=== PATIENT | male | born 1970 | race Two or more races ===

== ENCOUNTER 2021-12-13 17:07 | Inpatient (IN) | payer BC, MEDICAID ==
[~2021-12-13] VITALS: Ht 177.8 cm; Wt 74.8 kg
[2021-12-13 18:20] LABS: BASOPHILS # (AUTO) 0.1 K/uL (0.0-0.2); BASOPHILS % (AUTO) 0.5 % (0.0-2.0); HEMATOCRIT 41 % (39-51); HEMOGLOBIN 14.3 g/dL (13.5-17.5); LYMPHOCYTES # (AUTO) 1.3 K/uL (0.8-4.8); LYMPHOCYTES % (AUTO) 11.6 % (20.0-44.0); MEAN CORPUSCULAR HGB CONC 35 g/dl (31.0-36.0); MEAN CORPUSCULAR VOLUME 83 fL (80-96); MONOCYTES # (AUTO) 0.8 K/uL (0.1-1.30); MONOCYTES % (AUTO) 7.5 % (2.0-12.0); NEUTROPHILS # (AUTO) 8.5 K/uL (1.8-8.9); NEUTROPHILS % (AUTO) 78.4 % (43.0-81.0); PLATELET COUNT (AUTO) 613 K/uL (150-450); RED BLOOD CELL COUNT(AUTO) 4.87 MIL/uL (4.5-6.0); WHITE BLOOD COUNT (AUTO) 10.9 K/uL (4.3-11.0)
[2021-12-13 18:37] LABS: CALCIUM, SERUM 8.9 mg/dL (8.5-10.1); CARBON DIOXIDE 27 mmol/L (21-32); CHLORIDE 81 mmol/L (98-107); CREATININE 0.8 mg/dL (0.6-1.3); GLUCOSE 110 mg/dL (74-106); POTASSIUM 4.2 mmol/L (3.5-5.1); UREA NITROGEN, BLOOD 7 mg/dL (7-18)
[2021-12-13 18:41] LABS: ALANINE AMINOTRANSFERASE 48 U/L (12-78); ALBUMIN 3.5 g/dL (3.4-5.0); ALCOHOL, BLOOD < 3 mg/dL (0-0); ALKALINE PHOSPHATASE 108 U/L (46-116); ASPARTATE AMINOTRANSFERASE 27 U/L (15-37); BILIRUBIN,DIRECT 0.2 mg/dL (0.0-0.2); BILIRUBIN,TOTAL 0.6 mg/dL (0.2-1.0); TOTAL PROTEIN, SERUM 7.6 g/dL (6.4-8.2)
[2021-12-13 18:43] LABS: ACETAMINOPHEN 0 ug/ml (10-30); SODIUM SERUM 113 mmol/L (136-145)
[2021-12-13] MEDS ORDERED: IV NS 0.9% 1,000 ML IV ONE (19:00)
[2021-12-13 19:56] LABS: BILIRUBIN,URINE NEGATIVE (NEGATIVE); COLOR,URINE YELLOW (YELLOW); LEUKOCYTE ESTERASE ,URINE NEGATIVE (NEGATIVE); NITRITE, URINE NEGATIVE (NEGATIVE); PROTEIN,URINE NEGATIVE (NEGATIVE); UGLUCOSE NEGATIVE (NEGATIVE); UROBILINOGEN,URINE 0.2 EU/dL (0.2)
[2021-12-13 20:35] LABS: BACTERIA,URINE None seen /HPF (None Seen); SQUAMOUS EPITHELIAL CELL,UR 0-2 /HPF (None Seen); WBC,URINE 0-2 /HPF (0-3)
[2021-12-13 23:06] LABS: CALCIUM, SERUM 8.7 mg/dL (8.5-10.1); CREATININE 0.7 mg/dL (0.6-1.3); POTASSIUM 4.2 mmol/L (3.5-5.1)
[2021-12-14] MEDS ORDERED: ACETAMINOPHEN 325 MG TABLET PO PRN
[2021-12-14] MEDS ORDERED: MAGNESIUM HYDROXIDE 30 ML UDC PO PRN
[2021-12-14] MEDS ORDERED: MAG HYDROX/AL HYDROX/SIMETH 30 ML UDC PO PRN
[2021-12-14] MEDS ORDERED: ONDANSETRON HCL/PF 4 MG/2 ML VIAL IVP PRN
[2021-12-14] MEDS ORDERED: Z GUARD REMEDY 4 OZ OINT TP PRN
[2021-12-14 04:36] LABS: BASOPHILS % (AUTO) 0.5 % (0.0-2.0); EOSINOPHILS % (AUTO) 3.2 % (0.0-6.0); HEMATOCRIT 40 % (39-51); HEMOGLOBIN 14.1 g/dL (13.5-17.5); LYMPHOCYTES # (AUTO) 1.5 K/uL (0.8-4.8); LYMPHOCYTES % (AUTO) 15.8 % (20.0-44.0); MEAN CORPUSCULAR HGB CONC 35 g/dl (31.0-36.0); MEAN CORPUSCULAR VOLUME 84 fL (80-96); MONOCYTES # (AUTO) 0.9 K/uL (0.1-1.30); MONOCYTES % (AUTO) 9.5 % (2.0-12.0); NEUTROPHILS # (AUTO) 6.7 K/uL (1.8-8.9); PLATELET COUNT (AUTO) 603 K/uL (150-450); RED BLOOD CELL COUNT(AUTO) 4.82 MIL/uL (4.5-6.0); WHITE BLOOD COUNT (AUTO) 9.5 K/uL (4.3-11.0)
[2021-12-14 04:48] LABS: CALCIUM, SERUM 8.9 mg/dL (8.5-10.1); CREATININE 0.9 mg/dL (0.6-1.3); POTASSIUM 4.2 mmol/L (3.5-5.1)
[2021-12-14 04:52] LABS: MAGNESIUM 2.1 mg/dL (1.8-2.4); PHOSPHORUS 3.5 mg/dL (2.5-4.9)
[2021-12-14 05:04] LABS: THYROID STIMULATING HORMONE 1.846 uIU/mL (0.358-3.74)
[2021-12-14] MEDS: IV NS 0.9% 1,000 ML IV PRN (06:52)
[2021-12-14] MEDS ORDERED: PANTOPRAZOLE 40 MG TABLET.DR PO ONE (07:27)
[2021-12-14] MEDS: PANTOPRAZOLE 40 MG TABLET.DR PO SCH (07:30)
[2021-12-14] MEDS ORDERED: OMEP20TA5 PO (08:27)
[2021-12-14] MEDS ORDERED: ALLO300T2 PO (08:27)
[2021-12-14] MEDS ORDERED: MONT10TA22 PO (08:27)
[2021-12-14] MEDS ORDERED: FLUT1BLS15 INH (08:27)
[2021-12-14 10:45] LABS: POTASSIUM 4.1 mmol/L (3.5-5.1)
[2021-12-14 12:43] LABS: CALCIUM, SERUM 9.1 mg/dL (8.5-10.1); POTASSIUM 4.3 mmol/L (3.5-5.1)
[2021-12-14 15:01] LABS: POTASSIUM 4.6 mmol/L (3.5-5.1)
[2021-12-14 17:02] VITALS: BP 129/73
[2021-12-14 20:25] LABS: CREATININE, URINE 25.2 MG/DL (30.0-125.0)
[2021-12-15] MEDS: IV NS 0.9% 1,000 ML IV PRN (03:27)
[2021-12-15] MEDS: PANTOPRAZOLE 40 MG TABLET.DR PO SCH (08:09)
[2021-12-15 08:59] LABS: CALCIUM, SERUM 9.1 mg/dL (8.5-10.1); CREATININE 0.9 mg/dL (0.6-1.3); POTASSIUM 4.4 mmol/L (3.5-5.1)
== END 2021-12-15 15:00 | disposition home or self-care (01) | DRG 426 ==
LOC: ER 17:19 → TRANSITION 23:14 → TELE 12-14 19:25
PROVIDERS: ADMIT Nurse Practitioner Family
DX: E87.1 Hypo-osmolality and hyponatremia (principal); R45.851 Suicidal ideations; E86.1 Hypovolemia; Z20.822 Contact with and (suspected) exposure to COVID-19; Z88.0 Allergy status to penicillin; Z91.041 Radiographic dye allergy status; E78.5 Hyperlipidemia, unspecified; F32.A Depression, unspecified; M10.9 Gout, unspecified; Z80.6 Family history of leukemia
CPT/HCPCS: 36415; 80048-TC; 80061-TC; 80076-TC; 81001; 82570-TC; 83735-TC; 84100-TC; 84300-TC; 84443-TC; 85025-TC; 87081-TC; C9803; G0378; G0480; J7030